=== PATIENT | female | born 1995 | race Caucasian/White ===

== ENCOUNTER 2023-01-06 17:46 | Emergency (ER) | payer MEDICAID ==
[~2023-01-06] VITALS: Ht 162.6 cm; Wt 49.9 kg
[2023-01-06 17:57] VITALS: BP 137/91; PULSE 69; RESP 18; TEMP 97.5; O2SAT 100
[2023-01-06 18:49] LABS: BASOPHILS % (AUTO) 0.4 % (0.0-2.0); EOSINOPHILS # (AUTO) 0.2 K/uL (0-0.4); EOSINOPHILS % (AUTO) 3.1 % (0.0-4.0); HEMATOCRIT 41.4 % (36-48); HEMOGLOBIN 13.7 g/dL (12.0-16.0); LYMPHOCYTES # (AUTO) 2.4 K/uL (2.5-16.5); LYMPHOCYTES % (AUTO) 41.6 % (20.5-51.1); MEAN CORPUSCULAR HEMOGLOBIN 27 pg (27-31); MEAN CORPUSCULAR HGB CONC 33 g/dL (33-37); MEAN CORPUSCULAR VOLUME 80.9 fL (80-94); MONOCYTES # (AUTO) 0.5 K/uL (0.8-1.0); MONOCYTES % (AUTO) 8.2 % (1.7-9.3); NEUTROPHILS # (AUTO) 2.7 K/uL (1.8-7.7); NEUTROPHILS % (AUTO) 46.7 % (42.2-75.2); PLATELET COUNT (AUTO) 267 K/uL (140-450); RED BLOOD CELL COUNT(AUTO) 5.12 MIL/uL (4.20-5.40); RED CELL DISTRIBUTION WIDTH 16.3 % (11.6-13.7); WHITE BLOOD COUNT (AUTO) 5.7 K/uL (4.8-10.8)
[2023-01-06 19:01] LABS: ANION GAP 10.7 (8-16); CARBON DIOXIDE 27.2 mmol/L (21-32); CREATININE 0.8 mg/dL (0.6-1.3); POTASSIUM 3.9 mmol/L (3.5-5.1)
[2023-01-06] MEDS ORDERED: ATA25 PO (21:20)
[2023-01-06 21:33] VITALS: BP 100/61; PULSE 74; RESP 18; TEMP 97.3; O2SAT 98
== END 2023-01-06 21:33 | disposition home or self-care (01) ==
LOC: MED 17:46
DX: R06.02 Shortness of breath (principal); R07.89 Other chest pain; R00.2 Palpitations; Z79.899 Other long term (current) drug therapy
CPT/HCPCS: 36415; 71045; 80048; 81002; 81025; 85025; 93005; 99285